=== PATIENT | male | born 1975 | race Two or more races ===

== ENCOUNTER 2024-06-01 10:01 | Inpatient (IN) | payer OTHER ==
[~2024-06-01] VITALS: Ht 165.1 cm; Wt 99.8 kg
[2024-06-01] MEDS ORDERED: AMLODIPINE-OLM1 EAC2 (10:07)
[2024-06-01] MEDS ORDERED: COZAAR25 MG PO (10:07)
[2024-06-01] MEDS ORDERED: BARIUM SULFATE 450 ML ORAL.SUSP PO ONE (10:21)
[2024-06-01 10:43] LABS: HEMATOCRIT 40.7 % (39.0-48.0); HEMOGLOBIN 13.9 g/dL (13-16.00); MEAN CELL VOLUME 85.6 fL (80.0-100.00); MEAN CORPUSCULAR HEMOGLOBIN 29.3 pg (27.00-32.0); MEAN CORPUSCULAR HGB CONC 34.2 g/dl (32.0-36.0); PLATELET COUNT 288 K/uL (150-450); RED BLOOD COUNT 4.76 M/uL (4.00-6.00)
[2024-06-01 11:09] LABS: CALCIUM 8.8 mg/dL (8.5-10.1); CREATININE SERUM 2.5 mg/dL (0.70-1.30); GFR 27.36
[2024-06-01 11:29] LABS: POTASSIUM 2.75 mEq/L (3.5-5.1)
[2024-06-01] MEDS ORDERED: POTASSIUM CHLORIDE/D5-0.9%NACL 1,000 ML IV NR (11:30)
[2024-06-01 12:41] LABS: PH,URINE 5.5 (5.0-8.0); URINE APPEARANCE Clear; URINE BILIRRUBIN Negative (NEGATIVE); URINE BLOOD Negative; URINE COLOR Yellow; URINE GLUCOSE Negative (NEGATIVE); URINE LEUKOCYTE Negative; URINE NITRATE Negative; URINE PROTEIN Trace (NEGATIVE); URINE UROBILINOGEN 0.2 E.U./dl
[2024-06-01 12:45] LABS: URINE RBC 3.2 uL (0.0-20.8); URINE WBC 5.5 uL (0.0-23.2)
[2024-06-01] MEDS ORDERED: LIDOCAINE HCL VISCOUS 20MG/ML BLIST 15ML MM ONE (15:14)
[2024-06-01] MEDS ORDERED: ACETAMINOPHEN 500 MG GEL..CAP PO PRN (18:30)
[2024-06-01] MEDS ORDERED: ONDANSETRON HCL 4 MG in 0.9 % SODIUM CHLORIDE 50 ML IV PRN (18:30)
[2024-06-01] MEDS ORDERED: FAMOTIDINE/PF 20 MG in 0.9 % SODIUM CHLORIDE 8 ML IV PUSH SCH (18:31)
[2024-06-01] MEDS ORDERED: 0.9 % SODIUM CHLORIDE 1,000 ML IV ONE (18:45)
[2024-06-01] MEDS ORDERED: 0.9 % SODIUM CHLORIDE 1,000 ML IV SCH (18:45)
[2024-06-01] MEDS ORDERED: FAMOtidine 200mg/20ml VIAL ONE (19:42)
[2024-06-01] MEDS ORDERED: PIPERACILLIN/TAZOBACTAM SODIUM 3.375 GM VIAL IV ONE (19:42)
[2024-06-01 20:19] LABS: PROTHROMBIN TIME 10.5 SECONDS (9.0-11.5)
[2024-06-01 20:22] LABS: MAGNESIUM 2.5 mg/dL (1.8-2.4); PHOSPHOROUS 3.4 mg/dL (2.5-4.9)
[2024-06-01 20:27] LABS: C-REACTIVE PROTEIN 3.99 MG/DL (0.00-0.29)
[2024-06-02] MEDS ORDERED: PIPERACILLIN/TAZOBACTAM SODIUM 3.375 GM in 0.9 % SODIUM CHLORIDE 100 ML IV SCH
[2024-06-02] MEDS ORDERED: PIPERACILLIN/TAZOBACTAM SODIUM 2.25 GM in DEXTROSE 5 % IN WATER 50 ML IV SCH
[2024-06-02] MEDS ORDERED: PIPERACILLIN/TAZOBACTAM SODIUM 2.25 GM VIAL IV ONE (01:10)
[2024-06-02] MEDS ORDERED: POTASSIUM CHLORIDE 20MEQ/100ML H2O PB IV ONE (01:11)
[2024-06-02] MEDS ORDERED: POTASSIUM CHLORIDE IN WATER 100 ML IV SCH (05:00)
[2024-06-02] MEDS ORDERED: RINGERS SOLUTION,LACTATED 1,000 ML IV SCH (08:30)
[2024-06-02] MEDS ORDERED: ENOXAPARIN SODIUM 30 MG/0.3 ML SYRINGE SUBCUTANEO SCH (09:00)
[2024-06-03 08:01] LABS: HEMATOCRIT 40.7 % (39.0-48.0); HEMOGLOBIN 13.7 g/dL (13-16.00); MEAN CELL VOLUME 88.3 fL (80.0-100.00); MEAN CORPUSCULAR HEMOGLOBIN 29.7 pg (27.00-32.0); MEAN CORPUSCULAR HGB CONC 33.7 g/dl (32.0-36.0); PLATELET COUNT 265 K/uL (150-450); RED BLOOD COUNT 4.61 M/uL (4.00-6.00); RED CELL DISTRIBUTION WIDTH 14.3 % (11.5-14.5)
[2024-06-03 08:11] LABS: ALBUMIN 3.2 gm/dL (3.4-5.0); BILIRUBIN TOTAL 1.4 mg/dL (0.3-1.2); CALCIUM 8.8 mg/dL (8.5-10.1); CREATININE SERUM 0.9 mg/dL (0.70-1.30); GFR 88.96; GLOBULINA 3.5 G/DL (2.4-3.5); MAGNESIUM 2.6 mg/dL (1.8-2.4); POTASSIUM 3.61 mEq/L (3.5-5.1); TOTAL PROTEIN 6.7 gm/dL (6.4-8.2)
[2024-06-03 08:31] LABS: PHOSPHOROUS 2.8 mg/dL (2.5-4.9)
[2024-06-04 07:46] LABS: CALCIUM 9.3 mg/dL (8.5-10.1); CREATININE SERUM 0.79 mg/dL (0.70-1.30); GFR 103.4; POTASSIUM 3.55 mEq/L (3.5-5.1)
[2024-06-04] MEDS ORDERED: LOSARTAN POTASSIUM 25 MG TABLET PO SCH (12:00)
[2024-06-04] MEDS ORDERED: AMLODIPINE BESYLATE 2.5 MG TABLET PO SCH (12:00)
[2024-06-05] MEDS ORDERED: DEXTROSE 5 %-0.45 % SOD CHLORD 1,000 ML IV SCH (06:15)
[2024-06-05] MEDS ORDERED: AMLODIPINE BESYLATE 5 MG TABLET PO STA (15:51)
[2024-06-05] MEDS ORDERED: LOSARTAN POTASSIUM 50 MG TABLET PO STA (15:52)
== END 2024-06-05 20:24 | disposition home or self-care (01) | DRG 389 ==
LOC: ER 10:02 → SURG 19:13
PROVIDERS: Emergency Medicine; General Practice; Internal Medicine Nephrology; ADMIT Internal Medicine; ATTEND Internal Medicine
PROC: BW21YZZ Computerized Tomography (CT Scan) of Abdomen and Pelvis using Other Contrast (ICD-10-PCS; principal; 2024-06-01)
PROC: 0DH67UZ Insertion of Feeding Device into Stomach, Via Natural or Artificial Opening (ICD-10-PCS; 2024-06-01)
DX: K56.609 Unspecified intestinal obstruction, unspecified as to partial versus complete obstruction (principal); N17.9 Acute kidney failure, unspecified; K52.9 Noninfective gastroenteritis and colitis, unspecified; E86.0 Dehydration; E87.6 Hypokalemia; I10 Essential (primary) hypertension; N40.0 Benign prostatic hyperplasia without lower urinary tract symptoms